=== PATIENT | male | born 1990 | race Caucasian/White ===

== ENCOUNTER 2024-01-07 08:24 | Emergency (ER) | payer MEDICAID ==
[~2024-01-07] VITALS: Ht 170.2 cm; Wt 95.3 kg
[2024-01-07 08:30] VITALS: BP_SYST 125; PULSE 110; RESP 19; TEMP 97.9; O2SAT 99
[2024-01-07 09:18] VITALS: BP_SYST 125; PULSE 110; RESP 19; TEMP 97.9; O2SAT 99
== END 2024-01-07 09:18 | disposition home or self-care (01) ==
LOC: SED 08:24
DX: Z00.8 Encounter for other general examination (principal); F15.10 Other stimulant abuse, uncomplicated; Z79.899 Other long term (current) drug therapy
CPT/HCPCS: 71045; 99283